=== PATIENT | female | born 1970 | race American Indian/Alaskan Native ===

== ENCOUNTER 2023-11-12 16:33 | Emergency (ER) | payer OTHER ==
[2023-11-12 16:48] VITALS: BP 118/70; O2SAT 97
[2023-11-12] MEDS: TETANUS/DIPHTHERIA/PERTUSSIS 0.5 ML SYRINGE IM ONE (17:00)
--- NOTE | 2023-11-12 17:01 | ED Physician Documentation ---
PD HPI UPPER EXT INJURY - Stated complaint Stated Complaint: LT HAND CUT - Chief complaint Chief Complaint: Laceration - History obtained from History obtained from: Patient (Right-handed woman with unknown tetanus status accidentally cut her left pinky tip at home with a kitchen knife just prior to arrival.) PD PAST MEDICAL HISTORY - Past Medical History Past Medical History: Yes Cardiovascular: None Respiratory: None Neuro: None Endocrine/Autoimmune: None GI: None TEARER: None : None HEENT: None Psych: Depression, Anxiety Musculoskeletal: Osteoarthritis Derm: None - Past Surgical History Past Surgical History: Yes General: Cholecystectomy Ortho: Other - Present Medications Home Medications: Ambulatory Orders Medication Instructions Recorded Confirmed Acetaminophen [Tylenol] 650 mg PO Q6H PRN 11/12/23 11/12/23 Citalopram [CeleXA] 20 mg PO DAILY PM 11/12/23 11/12/23 Ibuprofen 400 mg PO Q6HR PRN 11/12/23 11/12/23 - Allergies Allergies/Adverse Reactions: Allergies Allergy/AdvReac Type Severity Reaction Status Date / Time erythromycin base AdvReac Unknown Verified 11/12/23 16:41 - Social History Does the pt smoke?: Yes Smoking Status: Current every day smoker Does the pt drink ETOH?: No Does the pt have substance abuse?: No - Immunizations Immunizations are current?: No Immunizations: TDAP >10years/unknown - POLST Patient has POLST: No PD ED PE NORMAL - Vitals Vital signs reviewed: Yes - General General: Alert and oriented X 3, No acute distress - Extremities Extremities: Other (There is a very small laceration measuring maybe 4 mm that is curved on the pulp of the left pinky finger.) - Neuro Neuro: Alert and oriented X 3, Normal speech Results - Vitals Vitals: Vital Signs - 24 hr 11/12/23 16:41 Temperature 36.2 C L Heart Rate 73 Respiratory 16 Rate Blood Pressure 118/70 O2 Saturation 97 Oxygen O2 Source Room air Procedures - Laceration (location) L pinky Length in cm: 0.4 Wound type: Curved, Into subcut fat Wound preparation: Irrigated copiously NS Skin layer closure: Dermabond (The laceration was quite small and we discussed suturing versus Dermabond and she opts for the Dermabond) Departure - Departure Disposition: 01 Home, Self Care Clinical Impression: Laceration of left little finger Qualifiers: Encounter type: initial encounter Damage to nail status: without damage Foreign body presence: without foreign body Qualified Code(s): S61.217A - Laceration without foreign body of left little finger without damage to nail, initial encounter Condition: Good Record reviewed to determine appropriate education?: Yes Instructions: ED Laceration Ext Skin Glue Comments: As discussed, the glue may come off before it is fully healed. You can just reapply some regular superglue every couple of days. Return for signs of infection that would include redness, swelling, drainage, increased pain, or fevers.
== END 2023-11-12 17:05 | disposition home or self-care (01) ==
LOC: ED 16:33
DX: S61.217A Laceration without foreign body of left little finger without damage to nail, initial encounter (principal); W26.0XXA Contact with knife, initial encounter; Y93.G3 Activity, cooking and baking; Y92.000 Kitchen of unspecified non-institutional (private) residence as the place of occurrence of the external cause; Z23 Encounter for immunization; F17.200 Nicotine dependence, unspecified, uncomplicated
CPT/HCPCS: 12001; 90471; 99283